=== PATIENT | male | born 1975 | race Caucasian/White ===

== ENCOUNTER 2018-03-09 19:44 | Emergency (ER) | END 2018-03-09 22:38 | disposition home or self-care (01) ==

== ENCOUNTER 2019-07-13 10:28 | Emergency (ER) | payer OTHER ==
[~2019-07-13] VITALS: Wt 89.0 kg
[~2019-07-13 10:28] MED LIST: HYDR-4011 PO; IBUP-1542 PO; IBUP-1561 PO
[2019-07-13] MEDS ORDERED: KETOROLAC 60 MG INJ IM STA (12:53)
[2019-07-13] MEDS ORDERED: OXYCODONE/ACETAMINOPHEN (10/325) TAB PO ONE (13:00)
[2019-07-13 15:08] VITALS: BP 131/67; PULSE 62; RESP 18
== END 2019-07-13 15:09 | disposition home or self-care (01) ==
LOC: FTE 10:28
DX: S83.91XA Sprain of unspecified site of right knee, initial encounter (principal); V23.4XXA Motorcycle driver injured in collision with car, pick-up truck or van in traffic accident, initial encounter
CPT/HCPCS: 29505; 73510; 73550; 73562; 73590; 73610; 73630; 96372; J1885; Z7502; Z7610; 73502; 73552